=== PATIENT | female | born 1970 | race Caucasian/White ===

== ENCOUNTER → 2020-08-23 17:45 | Outpatient (CLI) | payer OTHER, SELFPAY ==
--- NOTE | ~2020-08-23 | MM_ITS ---
EXAMINATION: MM screening [facility] w [facility] HISTORY: Screening TECHNIQUE: Craniocaudal and mediolateral oblique 3-D tomosynthesis images were obtained and synthetic 2-D images were generated. CAD analysis was submitted and interpreted. COMPARISON: Comparison to multiple prior studies sequentially, with oldest reviewed study dated 03/29. BREAST PARENCHYMAL COMPOSITION: There are scattered areas of fibroglandular density. FINDINGS: There is no evidence of suspicious mass, calcification, or architectural distortion to sugg est malignancy in either breast. There has been no suspicious interval change. IMPRESSION: 1. No mammographic evidence of malignancy. 2. Recommend routine screening mammography in one year. BI-RADS Category 1: Negative Reviewed, dictated and finalized at location A.
== END ==
PROVIDERS: PCP Family Medicine; Visit Provider Obstetrics & Gynecology
DX: Z12.31 Encounter for screening mammogram for malignant neoplasm of breast (principal)
CPT/HCPCS: 77063; 77067

== ENCOUNTER 2021-11-13 07:41 | Outpatient (CLI) | payer OTHER, SELFPAY ==
--- NOTE | ~2021-11-13 | MM_ITS ---
EXAMINATION: MM screening [facility] w [facility] HISTORY: Screening TECHNIQUE: Craniocaudal and mediolateral oblique 3-D tomosynthesis images were obtained and synthetic 2-D images were generated. CAD analysis was submitted and interpreted. COMPARISON: Comparison to multiple prior studies sequentially, with oldest reviewed study dated 05/06. BREAST PARENCHYMAL COMPOSITION: There are scattered areas of fibroglandular density. FINDINGS: There is no evidence of suspicious mass, calcification, or architectural distortion to sugg est malignancy in either breast. There has been no suspicious interval change. IMPRESSION: 1. No mammographic evidence of malignancy. 2. Recommend routine screening mammography in one year. BI-RADS Category 1: Negative Reviewed, dictated and finalized at location A. PATTERN REPAIRER
== END 2021-11-13 07:42 | disposition home or self-care (01) ==
PROVIDERS: PCP Family Medicine; Visit Provider Obstetrics & Gynecology
DX: Z12.31 Encounter for screening mammogram for malignant neoplasm of breast (principal)
CPT/HCPCS: 77063; 77067

== ENCOUNTER 2023-01-08 08:04 | Outpatient (CLI) | payer OTHER, SELFPAY ==
--- NOTE | ~2023-01-08 | MM_ITS ---
EXAMINATION: MM screening srin[facility] BI w [facility] HISTORY: Screening mammogram TECHNIQUE: Craniocaudal and mediolateral oblique 3-D tomosynthesis images were obtained and synthetic 2-D images were generated. CAD analysis was submitted and interpreted. COMPARISON: 11/13/2021, 08/23/2020, 07/14/2019 bilateral screening mammogram examinations BREAST PARENCHYMAL COMPOSITION: There are scattered areas of fibroglandular density. FINDINGS: There is no evidence of suspicious mass, calcification, or architectural distortion to sugg est malignancy in either breast. There has been no suspicious interval change. IMPRESSION: 1. No mammographic evidence of malignancy. 2. Recommend routine screening mammography in one year. BI-RADS Category 1: Negative Reviewed, dictated and finalized at location A. S COORDINATOR
== END 2023-01-08 08:05 | disposition home or self-care (01) ==
PROVIDERS: PCP Family Medicine; Visit Provider Obstetrics & Gynecology
DX: Z12.31 Encounter for screening mammogram for malignant neoplasm of breast (principal)
CPT/HCPCS: 77063; 77067

== ENCOUNTER 2024-01-23 07:49 | Outpatient (CLI) | payer OTHER, SELFPAY ==
--- NOTE | ~2024-01-23 | MM_ITS ---
EXAMINATION: MM screening srin[facility] BI w [facility] HISTORY: Screening mammogram TECHNIQUE: Craniocaudal and mediolateral oblique 3-D tomosynthesis images were obtained and synthetic 2-D images were generated. CAD analysis was submitted and interpreted. COMPARISON: January 08, 2023, November 13, 2021 bilateral screening mammogram examinations BREAST PARENCHYMAL COMPOSITION: There are scattered areas of fibroglandular density. FINDINGS: There is no evidence of suspicious mass, calcification, or architectural distortion to sugg est malignancy in either breast. There has been no suspicious interval change. IMPRESSION: 1. No mammographic evidence of malignancy. 2. Recommend routine screening mammography in one year. BI-RADS Category 1: Negative Reviewed, dictated and finalized at location A. BOX OPERATOR
== END 2024-01-23 07:50 | disposition home or self-care (01) ==
DX: Z12.31 Encounter for screening mammogram for malignant neoplasm of breast (principal)
CPT/HCPCS: 77063; 77067

== ENCOUNTER 2025-04-01 07:51 | Outpatient (CLI) | payer OTHER, SELFPAY ==
--- NOTE | ~2025-04-01 | MM_ITS ---
EXAMINATION: MM screening srinath BI w rebel HISTORY: Screening TECHNIQUE: Craniocaudal and mediolateral oblique 3-D tomosynthesis images were obtained and synthetic 2-D images were generated. CAD analysis was submitted and interpreted. COMPARISON: Comparison to multiple prior studies sequentially, with oldest reviewed study dated 06/12. BREAST PARENCHYMAL COMPOSITION: Not dense: There are scattered areas of fibroglandular density. FINDINGS: There is no evidence of suspicious mass, calcification, or architectural distortion to sugg est malignancy in either breast. There has been no suspicious interval change. IMPRESSION: 1. No mammographic evidence of malignancy. 2. Recommend routine screening mammography in one year. BI-RADS Category 1: Negative Reviewed, dictated and finalized at location A.
--- OUTSIDE RECORDS SUMMARY | 2025-04-01 07:55 | XMS_ITS | Encounter Summary ---
Author Organization [facility] Healthcare Address [address] [place] [address] Care Team Providers Care Montessori Teacher Name Role Phone Hannah Mccoy MD Primary Care Provider [phone] Encounter Details Date Type Department Care Team (Late st Contact Info) Description 03/19/2025 Results Follow-Up [facility] [address] [place] [id number] Sophia Rasmussen MD [address] [facility] [id number] [place], [place] [id number] Social History Tobacco Use Types Packs/Day Years Used Date Smoking Tobacco: Former Cigarettes Smokeless Tobacco: Never Alcohol Use Standard Drinks/Week Comments Yes 0 (1 standard drink = 0.6 oz pur e alcohol) 4-5 per week Humiliation, Afraid, Rape, and Kick questionnair e Answer Date Recorded Within the last year, have y ou been afraid of your partner or ex-partner? No 12/29/2020 Within the last year, have y ou been humiliated or emotionally abused in other ways by your partner or ex-partner? No Within the last year, have y ou been kicked, hit, slapped, or otherwise physically hurt by your partner or ex-partner? No 12/29/2020 Within the last year, have y ou been raped or forced to have any kind of sexual activity by your partner or ex-partner? 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
--- OUTSIDE RECORDS SUMMARY | 2025-04-01 07:56 | XMS_ITS | Clinical Summary ---
Author Organization [facility] Administrative Offices Address [address] [place] [id number] Care Team Providers Care Mobile Equipment Mechanic Name Role Phone Michael Alfonso MD Primary Care Provider [phone] Allergies No known active allergies Medications No known medications Social History Tobacco Use Types Packs/Day Years Used Date Smoking Tobacco: Never Assessed Comments Unknown Sex and Gender Information Value Date Recorded Sex Assigned at Not on file Legal Sex Female 9:53 AM CDT Gender Identity Not on file Sexual Orientation Not on file Plan of Treatment Health Maintenance Due Date Last Done Comments DTAP/TDAP/TD VACCINES (1 - Tdap) 1989 HEPATITIS B VACCINES (1 of 3 - 19+ 3-dose series) 04/1989 HPV/Cotest (21-29) 1991 CERVICAL CANCER SCREENING 01/22/2000 HPV/Cotest (30-65) 01/22/2000 PAP SMEAR 01/22/2000 BREAST CANCER SCREENING 2010 COLORECTAL SCREENING 2015 Colorectal Cancer Screening 2015 FIT-DNA Q 3 years 2015 FIT/FOBT Q 1 year 2015 Flex Sig/CT Colonography Q 5 years 2015 ZOSTER VACCINE (1 of 2) 01/22/2020 INFLUENZA VACCINE (#1) 2024 Insurance Care Teams Mobile Equipment Mechanic Relationship Specialty Start Date End Date Michael Alfonso MD [address] [place] [id number] PCP - General Family Practice 09/13/17
--- OUTSIDE RECORDS SUMMARY | 2025-04-01 07:56 | XMS_ITS | Clinical Summary ---
Author Organization [facility] Address [address] [place] [address] Care Team Providers Care Windows Migration Technician Name Role Phone Hannah Mccoy MD Primary Care Provider [phone] Allergies No known active allergies Medications cholecalciferol, vitamin D3, (VITAMIN D3 ORAL) Take 2,500 Units by mouth Active Active Problems Problem Noted Date Diagnosed Date Annual physical exam 05/12/2024 Assessment & Plan (01/04/2025 9:07 AM HYDROLOGIST): Patient is here to today for annual physical exam. Blood work today. Mammogram scheduled in March Assessment & Plan (05/14/2024 5:22 PM CDT): Patient is here to today for annual physical exam. The patient was evaluated and all health maintenance objectives were discussed and addressed. Blood work Ordered. Mammogram UTD January 2024. PAP 01/02/2022- next 2024. Elevated BP without diagnosis of hypertension Assessment & Plan (01/04/2025 9:06 AM HYDROLOGIST): Chronic white coat. States she brought machine last visit and her blood pressure here in office is elevated but at home normal Assessment & Plan (05/14/2024 5:21 PM CDT): Acute. Normal systolic but slightly elevated diastolic. Patient to monitor blood pressure at home and upload readings through my chart. Well woman exam 02/07/2024 Assessment & Plan (03/05/2025 4:39 PM CDT): Well woman exam Cervix- pap obtained today Breast- normal exam findings STI screen- patient declined control- NA H/o PMB- as noted previously: Pt with US done a few days. Reviewed and see findings largely reassuring. EE- 5.4mm but reasonable when taking HT which started 6mo ago. No inclination to EmBx sample at this time. Pt obtaining current patch and prometrium from mail order option at this time. Requested that when Rx is done in 2 mo if possible to start getting this from our offices- not a problem. Discussed briefly the consideration of either tapering off meds vs continuing with pros/cons in mind juxtaposed to sx relief. #) HCM Screening History Date of Last Pap if Known: 01/02/2022 History of Abnormal Paps: Yes Ever had an HPV vaccine?: No Ever used Hormone Replacement Therapy?: Yes Number of years of Hormone Replacement Therapy?: (7 months ago) Ever had a mammogram?: Yes Date of Mammogram: 01/2024 Mammogram result: Normal Ever had a colonoscopy?: No (Cologuard) Ever had a bone-density test?: No #) RTC- 1 year for WWE or prn Assessment & Plan (02/07/2024 12:33 PM CDT): Cervix- pap obtained- last reflex testing normal in 2021; next in 2024 Breast- normal exam findings STI screen- patient declined control- NA HCM Screening History Date of Last Pap if Known: 01/02/22 History of Abnormal Paps: No Ever had a mammogram?: Yes Date of Mammogram: 11/13/21 Has a PCP, has not seen in some time; will obtain updated routine [facility] labs. Will make a return visit and/or find a new PCP Mixed hyperlipidemia 09/10/2017 Overview (07/19/2021): 09/02 Cholesterol 269 HDL 47 LDL 181 triglyceride 204 Assessment & Plan (05/14/2024 5:20 PM CDT): Chronic. Not on a statin. We will order lipid panel. Assessment & Plan (07/19/2021 12:25 PM CDT): Reviewed lipid panel from 01/08. Discussed elevated triglyceride and LDL. Discussed complications of elevated cholesterol. Discussed treatment option. Recommend healthy diet and regular exercise. Discussed medication options/statins. Patient would like to adopt lifestyle modification initially prior to starting medication. We will be reviewing lipid panel in 6 months. Recommended dietitian referral. Patient refused for now. Precordial pain 09/09/2017 Overview (07/19/2021): 03/04 stress echo 10:31--101% maximal heart rate, no ischemia, normal LVEF 09/03 EKG: SR at 84, borderline delayed R-wave progress, leftward axis 09/03 echo: EF 60%, normal chamber sizes, normal valve function, RVSP 24 10/04 CTA: Normal aorta, and no PE Assessment & Plan (07/19/2021 12:26 PM CDT): Reviewed results from 2016. No significant findings noted. Likely musculoskeletal. Differential diagnosis anxiety. Recommended could try hydroxyzine 10 mg Q 8 hourly as needed during the attack. To follow-up notify went symptoms reoccur. Reviewed previous records. Resolved Problems Problem Noted Date Diagnosed Date Resolved Date Immunization counseling 07/19/202104/19 Assessment & Plan (07/19/2021 12:26 PM CDT): Recommended immunization against tetanus, shingles, influenza and COVID-19. Patient refused immunization against tetanus and shingles for now. Encounters Date Type Department Care Team Description 03/19/2025 Results Follow-Up [facility] [address] [place] [address] Sophia Rasmussen MD 03/05/2025 4:44 PM CDT - 03/05/2025 11:59 PM CDT Hospital Encounter [facility] [address] [place] [address] Well woman exam Discharge Disposition: Discharge to home or self care 03/05/2025 4:00 PM CDT Office Visit [facility] Ob[facility]ne[facility] [address] [place] [address] Sophia Rasmussen MD Well woman exam (Primary Dx) 01/04/2025 2:35 PM HYDROLOGIST - 01/04/2025 11:59 PM HYDROLOGIST Hospital Encounter [facility] [address] [place] [id number] Discharge Disposition: Discharge to home or self care 01/04/2025 9:00 AM HYDROLOGIST Office Visit [facility] [address] [place] [address] [address] [place] [address] Kirsten Cabrera NP Annual physical exam (Primary Dx); Elevated BP without diagnosis of hypertension 01/04/2025 Results Follow-Up [facility] [address] [place] [address] [address] [place] [address] Kirsten Cabrera NP from Last 3 Months Immunizations Immunization Administration Dates Next Due Influenza, Quadrivalent, Spl it, Preservative Free, Intramuscular 10/01/2019 Influenza, Unspecified 01/04/2025(Deferr ed: Patient Refused),07/19/2024(Deferred: Patient Refused) Tdap 09/06/2016 Surgical History Surgery Date Site/Laterality Comments COMBINED HYSTEROSCOPY DIAGNO STIC / D&C 04/27/2011 path: secretory EM Medical History Medical History Date Comments High cholesterol Immunization counseling 07/19/2021 Family History Medical History Relation Name Comments Hyperlipidemia Father Camden leonard Hypertension Father Camden leonard Diabetes Maternal Grandfather Elmer chan Heart attack Maternal Grandfather Elmer chan Alzheimer's disease Maternal Grandmother Sasha abreu Heart attack Maternal Grandmother Sasha Chan Hypertension Mother Darling leonard Alcohol abuse Paternal Grandfather Erika leonard Heart disease Paternal Grandfather Erika leonard Heart disease Paternal Grandmother Erika leonard Hypertension Sister Dionne leonard Breast cancer Neg Hx Colon cancer Neg Hx Ovarian cancer Neg Hx Uterine cancer Neg Hx Relation Name Status Comments Father Camden leonard Maternal Grandfather Elmer chan Maternal Grandmother Sasha Chan Mother Darling leonard Paternal Grandfather Erika leonard Paternal Grandmother Erika leonard Sister Dionne leonard Social History Tobacco Use Types Packs/Day Years Used Date Smoking Tobacco: Former Cigarettes Smokeless Tobacco: Never Tobacco Cessation:Counseling Given: Not Answered Alcohol Use Standard Drinks/Week Comments Yes 0 [...] on file Legal Sex Female 3:12 AM HYDROLOGIST Gender Identity Not on file Sexual Orientation Not on file 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 Not on file Not on file Not on file Obstetrics History Para Term AB IAB SAB Ectopic Multiple Livin g Live Births 1 1 1 Date Outcome GA Total Labor Labor/2nd/3rd Weight Sex Type Anes PTL Frances A1 A5 Name Clin 1999 SAB Demise Last Filed Vital Signs Vital Sign Reading Time Taken Comments Blood Pressure 113/80 03/05/2025 4:00 PM CDT Pulse 84 03/05/2025 4:00 PM CDT Temperature 36.7 C (98.1 F) 01/04/2025 8:53 AM HYDROLOGIST Respiratory Rate - - Oxygen Saturation 97% 01/04/2025 8:53 AM HYDROLOGIST Inhaled Oxygen Concentration - - Weight 80 kg (176 lb 4.8 oz) 03/05/2025 4:00 PM CDT Height 166.4 cm (5' 5.5 ) 03/05/2025 4:00 PM CDT Body Mass Index 28.89 03/05/2025 4:00 PM CDT Plan of Treatment Health Maintenance Due Date Last Done Comments Breast Cancer Screening-Mammogram 02/04/2025 02/05/2024, 11/13/2021, 01/16/2021 Zoster Vaccine (1 of 2) 05/12/2025 Post poned from 01/22/2020 (Patient declined, but will receive in the future) Depression Screening 01/04/2026 01/04/2025, 05/12/2024, 07/19/2021 Regular Well Visit/Exam 18-64 03/05/2026 03/05/2025, 01/04/2025, 05/12/2024, Additional history exists DTaP/Tdap/Td Vaccine (2 - Td or Tdap) 09/06/2026 09/06/2016 Colon Cancer Screening-DNA Stool 06/11/2027 06/11/2024, 01/26/2021 Cervical Cancer Screening 03/05/20302024, 03/05/2025, 01/02/2022, Additional history exists Influenza Vaccine Discontinued 10/01/2019 Hepatitis C Screening Completed 05/12/2024 Colon Cancer Screening-FIT Discontinued 06/11/2024, Hepatitis B Screening Discontinued Pneumococcal vaccine <65 Aged Out No longer eligible based on patient's age to complete this topic Procedures Procedure Name Priority Date/Time Associated Diagnosis Comments PAP AND HIGH RISK HPV, REFLEX TO GENOTYPING Routine 03/05/2025 4:44 PM CDT Well woman exam HIGH RISK HPV DNA DETECTION WITH GENOTYPING Routine 03/05/2025 4:44 PM CDT Well woman exam EGFR Routine 01/04/2025 9:16 AM HYDROLOGIST Annual physical exam DIFFERENTIAL AUTO Routine 01/04/2025 9:1 6 AM HYDROLOGIST Annual physical exam COMPREHENSIVE METABOLIC PANEL Routine 01/04/2025 9:16 AM HYDROLOGIST Annual physical exam CBC WITH AUTO DIFFERENTIAL Routine 01/04/2025 9:16 AM HYDROLOGIST Annual physical exam LIPID PANEL Routine 01/04/2025 9:16 AM HYDROLOGIST Annual physical exam HEMOGLOBIN A1C Routine 01/04/2025 9:16 AM HYDROLOGIST Annual physical exam TSH Routine 01/04/2025 9:16 AM HYDROLOGIST Annual physical exam STOOL DNA COLOGUARD Routine 06/11/2024 9:40 PM CDT Screen for colon cancer HEPATITIS C ANTIBODY Routine 05/12/2024 5:00 PM CDT Preventative health care SCREENING MAMMOGRAM BILATERAL W REED Schedule Routine, Read Routine (OP Routine) 11/13/2021 from Last 3 Months or Most Recently Relevant to Health Maintenance Results * High Risk HPV DNA Detection with Genotyping (Molecular component) (03/05/2025 4:44 PM CDT) HPV HR 16 Not Detected Not Detected [facility] HPV HR 18 Not Detected Not Detected [facility] HPV HR Non 16/18 Not Detected Not Detected [facility] Comment: Interpretive Data Nucleic acid amplification for detection of high-risk Human Papilloma virus (HPV) is performed by the Lanie Jonathan 6800 HPV test. This assay specifically detects HPV-16 and HPV-18 genotypes. The following HPV genotypes are detected as high-risk HPV: HPV-31, 33, 35, ,39, 45, 51, 52, 56, 58, 59, 66, and 68. This assay has been approved by the [place] Food and Drug Administration for detection of HPV in cervical specimens collected by a physician using an endocervical brush/spatula or cervical broom and placed in the ThinPrep Pap Test PreservCyt collection containers. The performance characteristics of this test have been verified by the [facility] Molecular Infectious Disease laboratory. Correlate with separately reported cytology results, as applicable. Interpretive data last revised 23 Endocervical 03/05/2025 4:44 PM CDT 03/09/2025 8:16 AM CDT Narrative [facility] - 03/09/2025 7:22 PM CDT Clinical history and diagnosis->screening Number of vials->1 Testing type->Screening Last menstrual period (date if known)->postmeno Sophia Rasmussen MD LAB BODY FLUIDS AND STOOLS OR DERABLES Final Result [facility] [place] [address] [facility] * Pap and High Risk HPV and Genotyping (Cytology Component) (03/05/2025 4:44 PM CDT) Thin prep (Pap test) 03/05/2025 4:44 PM CDT 03/05/2025 6:30 PM CDT Narrative PATHOLOGY [facility] - 03/12/2025 12:06 PM CDT EPIC results best viewed via link to PDF [facility] [place] [address] Note to Patients: This report may contain a detailed description of human tissue sent by a health care provider to the laboratory for pathologic evaluation. The content of this report is essential for diagnosis and may provide important critical findings. This information may be unfamiliar to patients to review without a medical professional present. It is advised that the patient review this report in the presence of a health care provider who can answer questions and explain the details. CYTOPATHOLOGY REPORT FINAL Patient Name: STEPHANIE QUIROS Gender: F : 1970 (Age: 55) Address: [address] [place] [id number] Hospital #: [id number] Service: UNKNOWN Location: Patient Type: [facility] SPECIMEN Taken: 03/05/2025 Received: 03/05/2025 Accessioned: 03/08/2025 Reported: 03/12/2025 Physician(s): Sophia Rasmussen M.D. FINAL INTERPRETATION SOURCE OF SPECIMEN Liquid based Thin Prep pap with HPV: STATEMENT OF ADEQUACY - Satisfactory for evaluation - Endocervical cells/transformation zone sample present GENERAL CATEGORIZATION: - Negative for squamous intraepithelial lesion or malignancy Comments (Normal-Negative for High Risk HPV) HPV HR 16- Not detected HPV HR 18-Not detected HPV HR non 16/18- Not detected Interpretive Data Nucleic acid amplification for detection of high-risk Human Papilloma virus (HPV) is performed by the Lanie Jonathan 6800 HPV test. This assay specifically detects HPV- 16 and HPV-18 genotypes. The following HPV genotypes are detected as high-risk HPV: HPV-31, 33, 35, 39, 45, 51, 52, 56, 58, 59, 66, and 68. This assay has been approved by the [place] Food and Drug Administration for detection of HPV in cervical specimens collected by a physician using an endocervical brush/spatula or cervical broom and placed in the ThinPrep Pap Test PreservCyt collection containers. The performance characteristics of this test have been verified by the [facility] Molecular Infectious Disease laboratory. Correlate with reported cytology results, as applicable. Interpretive data last revised 23 ravindra/03/12/2025 12:06 ROSA Scruggs(ASCP) Report Electronically Reviewed and Signed Out By ROSA Scruggs(ASCP) 03/12/2025 12:06:54 Cervicovaginal Cytology (Pap Test) Disclaimer: The Pap test is a screening test used to detect cervical cancer and its precursors; it is not a diagnostic procedure. False negative and false positive results do occur. Pap test results should be interpreted in the context of pertinent clinical information and biopsy results as indicated. CMS Clinical Laboratory Improvement Amendments (CLIA) mandate that cytologic and histologic results be correlated for laboratory director of quality improvement & improvement standards. FOR ALL HIGH-GRADE CASES we request submission of follow-up histological material and/or reports that have not been previously provided so that we may fulfill said required standards. Gross Description A. Liquid based Thin Prep pap with HPV: Cervical/vaginal - Screening ThinPrep Clinical Diagnosis and History Last Menstrual Period: postmeno The patient is a 55 year old female with screening. Report Images and scanned documents, if included only viewable in PDF version The performance characteristics of some immunohistochemical stains, in-situ hybridization and fluorescence in-situ hybridization tests and immunophenotyping by flow cytometry cited in this report (if any) were determined by the Surgical Pathology Department at [facility] as part of an ongoing head of quality program and in compliance with federally mandated regulations drawn from the Clinical Laboratory Improvement Act of 1988 (CLIA '88). Some of these tests rely on the use of analyte specific reagents and are subject to specific labeling requirements by the [place] Food and Drug Administration. Such diagnostic tests may only be performed in a facility that is certified by the Department of Health and Human Services as a high complexity laboratory under CLIA '88. The FDA has determined that such clearance or approval is not necessary. This test is used for clinical purposes. It should not be regarded as investigational or for research. Nevertheless, federal rules concerning the medical use of analyte specific reagents require that the following disclaimer be attached to the report: This test was developed and its performance characteristics determined by the Surgical Pathology Department of [facility]. It has not been cleared or approved by the U. S. Food and Drug Administration. Sophia Rasmussen MD LAB CYTOLOGY ORDERABLES Final Result PATHOLOGY [facility] 3rd Floor [place], [place] [phone] * eGFR (01/04/2025 9:16 AM HYDROLOGIST) eGFR >90 >=60 mL/min/1. 73 m2 Comment: Interpretive Data Reference Interval Normal >/= 90 mL/min/1.73m2 Mildly decreased* 60 - 89 mL/min/1.73m2 Mildly to moderately decreased 45 - 59 mL/min/1.73m2 Moderately to severely decreased 30 - 44 mL/min/1.73m2 Severely decreased 15 - 29 mL/min/1.73m2 Kidney Failure < 15 mL/min/1.73m2 *Relative to young adult level Estimated glomerular filtration rate is determined by the 2020 CKD-EPI equation recommended by the National Kidney Foundation (A Unifying Approach to GFR Estimation: Recommendations of the NKF-ASK Task Force on Reassessing the Inclusion of Race in Diagnosing Kidney Disease, JASN 2020). The CKD-EPI equation should not be used for patients with unstable renal function and has not been validated in children and those over 70. Current interpretive data was last reviewed 2021. Blood 01/04/2025 9:16 AM HYDROLOGIST 01/04/2025 1:22 PM HYDROLOGIST us Kirsten Cabrera [employer] LAB BLOOD ORDERABLES Final Re sult [facility] [address] [place] [address] * Differential, auto (01/04/2025 9:16 AM HYDROLOGIST) Neutrophil abs 2.6 1.5 - 6.5 K/cumm Imm gran abs 0.0 0.0 - 0.1 K/cumm [facility] Lymphocyte abs 1.5 0.8 - 3.3 K/cumm [facility] Monocyte abs 0.4 0.2 - 0.8 K/cumm [facility] Eosinophil abs 0.2 0.0 - 0.5 K/cumm [facility] Basophil abs 0.0 0.0 - 0.1 K/cumm [facility] Neutrophil pct 56.2 % [facility] Comment: Interpretive Data Percent cell count reference ranges are not reported, since discordance with absolute values may lead to misinterpretation of CBC data. Current Interpretive Data was last revised on 2018. Imm gran pct 0.2 % [facility] Comment: Interpretive Data Percent cell count reference ranges are not reported, since discordance with absolute values may lead to misinterpretation of CBC data. Current Interpretive Data was last revised on 2018. Lymphocyte pct 31.5 % [facility] Comment: Interpretive Data Percent cell count reference ranges are not reported, since discordance with absolute values may lead to misinterpretation of CBC data. Current Interpretive Data was last revised on 2018. Monocyte pct 7.4 % [facility] Comment: Interpretive Data Percent cell count reference ranges are not reported, since discordance with absolute values may lead to misinterpretation of CBC data. Current Interpretive Data was last revised on 2018. Eosinophil pct 3.8 % [facility] Comment: Interpretive Data Percent cell count reference ranges are not reported, since discordance with absolute values may lead to misinterpretation of CBC data. Current Interpretive Data was last revised on 2018. Basophil pct 0.9 % [facility] Comment: Interpretive Data Percent cell count reference ranges are not reported, since discordance with absolute values may lead to misinterpretation of CBC data. Current Interpretive Data was last revised on 2018. Blood 01/04/2025 9:16 AM HYDROLOGIST 01/04/2025 12:43 PM HYDROLOGIST Kirsten Cabrera [employer] LAB BLOOD ORDERABLES Final Re sult [facility] [address] [place] [address] * CBC with auto differential (01/04/2025 9:16 AM HYDROLOGIST) WBC 4.7 3.8 - 9.9 K/cumm Hgb 14.1 11.9 - 15.5 g/dL [facility] Hct 43.6 35.6 - 45.5 % [facility] Plt 281 150 - 400 K/cumm [facility] MPV 10.0 9.1 - 12.3 fL [facility] RBC 4.54 3.90 - 5.20 M/cumm [facility] MCV 96.0 81.3 - 96.4 fL [facility] MCH 31.1 27.1 - 33.3 pg [facility] MCHC 32.3 32.3 - 35.7 g/dL [facility] RDW CV 11.9 11.1 - 14.9 % [facility] RDW SD 42.2 35.7 - 48.1 fL [facility] NRBC abs 0.00 0.00 - 0.01 K/cumm [facility] Blood 01/04/2025 9:16 AM HYDROLOGIST 01/04/2025 12:43 PM HYDROLOGIST Kirsten Cabrera [employer] LAB BLOOD ORDERABLES Final Re sult Performing Organization Address [facility] Co de Phone Number [facility] [address] Department [place] [address] * TSH (01/04/2025 9:16 AM HYDROLOGIST) [facility] Thyroid Stimulating Hormone 2.73 0.30 - 4.20 mcIUnit/mL Blood 01/04/2025 9:16 AM HYDROLOGIST 01/04/2025 1:22 PM HYDROLOGIST Kirsten Cabrera [employer] LAB BLOOD ORDERABLES Final Re sult Performing Organization Address [facility] de Phone Number [facility] [address] [place] [address] * Hemoglobin A1c (01/04/2025 9:16 AM HYDROLOGIST) [facility] Hgb A1C 5.5 4.0 - 5.6 % Estimated Average Glucose 111 mg/dL [facility] Comment: The ADA recommends reporting an estimated Average Glucose (eAG) with all Hemoglobin A1c results using the equation derived from a study of 507 normal and diabetic adults. Minority populations were underrepresented and children were not included. (Diabetes Care 31:9701-0947, 2008). The eAG is not equivalent to a fasting glucose. Blood 01/04/2025 9:16 AM HYDROLOGIST 01/04/2025 12:43 PM HYDROLOGIST Kirsten Cabrera [employer] LAB BLOOD ORDERABLES Final Re sult Performing Organization Address [facility] de Phone Number [facility] [address] Department [place] [address] * (ABNORMAL) Lipid panel (01/04/2025 9:16 AM HYDROLOGIST) [facility] Cholesterol 233(H) 30 - 199 mg/dL Comment: Interpretive Data Ages < or = 19 years Acceptable: <170 mg/dL Borderline high: 170-199 mg/dL High: >or= 200 mg/dL Ages > or = 20 years Desirable: <200 mg/dL Borderline high: 200-239 mg/dL High: >or= 240 mg/dL Literature References: 1. Expert Panel on Integrated Guidelines for Cardiovascular Health and Risk Reduction in Children and Adolescents. Pediatrics 2011;128:S213 2. NCEP Expert Panel. Circulation 2004;110:227 Current Interpretive Data was last revised on 2018. Triglycerides 140 <=149 mg/dL [facility] Comment: Interpretive Data Ages < or = 9 years Acceptable: <75 mg/dL Borderline high: 75-99 mg/dL High: >or= 100 mg/dL Ages 10 to 20 years Acceptable: <90 mg/dL Borderline high: 90-129 mg/dL High: >or= 130 mg/dL Ages > or = 20 years Desirable: <150 mg/dL Borderline high: 150-199 mg/dL High: 200-499 mg/dL Very high: >or= 499 mg/dL Literature References: 1. Expert Panel on Integrated Guidelines for Cardiovascular Health and Risk Reduction in Children and Adolescents. Pediatrics 2011;128:S213 2. NCEP Expert Panel. Circulation 2004;110:227 Current Interpretive Data was last revised on 2018. HDL 41 >=40 mg/dL [facility] Comment: Interpretive Data Ages < or = 19 years Acceptable: >45 mg/dL Borderline low: 40-45 mg/dL Low: <40 mg/dL Ages > or = 20 years Desirable: >or= 60 mg/dL Low: <40 mg/dL Literature References: 1. Expert Panel on Integrated Guidelines for Cardiovascular Health and Risk Reduction in Children and Adolescents. Pediatrics 2011;128:S213 2. NCEP Expert Panel. Circulation 2004;110:227 Current Interpretive Data was last revised on 2018. LDL, calculated 166(H) <=129 mg/dL [facility] Comment: Interpretive Data Ages < or = 19 years Acceptable: <110 mg/dL Borderline high: 110-129 mg/dL High: >or= 130 mg/dL Ages > or = 20 years Optimal: <100 mg/dL Near optimal: 100-129 mg/dL Borderline high: 130-159 mg/dL High: >160 mg/dL Calculated using the Diehl LDL-C estimating equation. This equation was implemented on 2024. Prior to this date LDL-C was estimated using the Friedewald equation. Literature References: 1. Expert Panel on Integrated Guidelines for Cardiovascular Health and Risk Reduction in Children and Adolescents. Pediatrics 2011;128:S213 2. NCEP Expert Panel. Circulation 2004;110:227 3. Fazal Valdez et al. SHAYAN Cardiol. 2019March 18;5(5):540-548. doi: [email or web address] Current Interpretive Data was last revised on 2024. Non-HDL Cholesterol 192 mg/dL [facility] Comment: Interpretive Data Ages < or = 19 years Acceptable: <120 mg/dL Borderline high: 120-144 mg/dL High: >145 mg/dL Ages > or = 20 years When triglycerides are >200 mg/dL, Non-HDL cholesterol is a secondary target of therapy with treatment goals that are 30 mg/dL greater than the LDL cholesterol target. Literature References: 1. Expert Panel on Integrated Guidelines for Cardiovascular Health and Risk Reduction in Children and Adolescents. Pediatrics 2011;128:S213 2. NCEP Expert Panel. Circulation 2004;110:227 Current Interpretive Data was last revised on 2018. Chol/HDL ratio 6 [facility] Blood 01/04/2025 9:16 AM HYDROLOGIST 01/04/2025 1:22 PM HYDROLOGIST us Kirsten Cabrera [facility] BLOOD ORDERABLES Final Re sult [facility] [address] [place] [address] * (ABNORMAL) Comprehensive metabolic panel (01/04/2025 9:16 AM HYDROLOGIST) Sodium 144 135 - 145 mmol/L Potassium, pl 4.4 3.3 - 4.9 mmol/L [facility] Chloride 106 97 - 110 mmol/L [facility] CO2 27 22 - 32 mmol/L [facility] Anion gap 11 2 - 15 mmol/L [facility] BUN 12 6 - 25 mg/dL [facility] Creatinine 0.69 0.60 - 1.10 mg/dL [facility] Glucose 109 70 - 199 mg/dL [facility] Comment: Interpretive Data Fasting glucose >/= 126 mg/dl is diagnostic for diabetes. Fasting is defined as no caloric intake for at least 8 hours. Fasting glucose between 100 mg/dl to 125 mg/dl is diagnostic of prediabetes. In a patient with classic symptoms of hyperglycemia or hyperglycemic crisis, a random glucose >/= 200 mg/dl is diagnostic for diabetes. In the absence of unequivocal hyperglycemia, results should be confirmed by repeat testing. The classification and Diagnosis of Diabetes Diabetes Care 2021; 46: S19-S40. Current interpretive data was last revised 2022. Calcium 9.3 8.5 - 10.3 mg/dL [facility] Bilirubin, total 0.5 0.1 - 1.2 mg/dL [facility] Protein, pl 7.1 6.5 - 8.5 g/dL [facility] Albumin 4.3 3.5 - 5.0 g/dL [facility] Alk phos 84 40 - 130 Units/L [facility] ALT 52(H) 7 - 45 Units/L [facility] AST 34 10 - 45 Units/L [facility] Blood 01/04/2025 9:16 AM HYDROLOGIST 01/04/2025 1:22 PM HYDROLOGIST Narrative [facility] - 01/04/2025 2:12 PM HYDROLOGIST Has the patient fasted?->Yes us Kirsten Cabrera [facility] BLOOD ORDERABLES Final Re sult [facility] [address] [place] [address] * Stool DNA - Cologuard (06/11/2024 9:40 PM CDT) Stool DNA - Cologuard Negative Negative [facility] (CLIA #:[id number]) Comment: NEGATIVE TEST RESULT. A negative Cologuard result indicates a low likelihood that a colorectal cancer (CRC) or advanced adenoma (adenomatous polyps with more advanced pre-malignant features) is present. The chance that a person with a negative Cologuard test has a colorectal cancer is less than 1 in 1500 (negative predictive value >99.9%) or has an advanced adenoma is less than 5.3% (negative predictive value 94.7%). These data are based on a prospective cross-sectional study of 10,000 individuals at average risk for colorectal cancer who were screened with both Cologuard and colonoscopy. (Stephanie Hodges al, N Engl J Med 2014;370(14):8481-4138) The normal value (reference range) for this assay is negative. COLOGUARD RE-SCREENING RECOMMENDATION: Periodic colorectal cancer screening is an important part of preventive healthcare for asymptomatic individuals at average risk for colorectal cancer. Following a negative Cologuard result, the [place] [employer] and U.S. Multi-Society Task Force screening guidelines recommend a Cologuard re-screening interval of 3 years. References: [employer] Guideline for Colorectal Cancer Screening: https://www.cancer.org/cancer/plbyl-tdsvcj-gwcljo/jemjyoaoj-iwiyhoaab-xtrrzfs/ac s-rec ommendations.html.; Bryce DK, Ricardo DALEY, Sandie LaddK, Colorectal Cancer Screening: Recommendations for Physicians and Patients from the U.S. Multi-Society Task Force on Colorectal Cancer Screening , Am J Gastroenterology 2017; 112:0245-0841. TEST DESCRIPTION: Composite algorithmic analysis of stool DNA-biomarkers with hemoglobin immunoassay. Quantitative values of individual biomarkers are not reportable and are not associated with individual biomarker result reference ranges. Cologuard is intended for colorectal cancer screening of adults of either sex, 45 years or older, who are at average-risk for colorectal cancer (CRC). Cologuard has been approved for use by the U.S. FDA. The performance of Cologuard was established in a cross sectional study of average-risk adults aged 50-84. Cologuard performance in patients ages 45 to 49 years was estimated by sub-group analysis of near-age groups. Colonoscopies performed for a positive result may find as the most clinically significant lesion: colorectal cancer [4.0%], advanced adenoma (including sessile [id number]|2025-04-01 07:56:00|2025-04-01 07:55:00|XMS_ITS|[facility]|External Medical Summaries|[id number]|" Encounter Summary Created on: April 01, 2025 Stephanie Quiros : 1970 Sex: Female Author Organization [facility] Address [address] [place] [address] Care Team Providers Care Windows Migration Technician Name Role Phone Michael Alfonso MD Primary Care Provider [phone] Cele Abdi MD Primary Care Provider [phone] Unknown, Notinfile Primary Care Provider Unavail able Tessa Jones MD Primary Care Provider [phone] Hannah Mccoy MD Primary Care Provider [phone] Encounter Details Date Type Department Care Team (Late st Contact Info) Description 02/26/2017 Orders Only [facility] ProviderDoug MD [address] [place] [id number] Social History Tobacco Use Types Packs/Day Years Used Date Smoking Tobacco: Never Assessed Comments Unknown Sex and Gender Information Value Date Recorded Sex Assigned at Not on file Legal Sex Female 3:12 AM HYDROLOGIST Gender Identity Not on file Sexual Orientation Not on file documented as of this encounter Plan of Treatment Not on file documented as of this encounter Procedures Procedure Name Priority Date/Time Associated Diagnosis Comments CARDIOLOGY REPORT 02/26/2017 documented in this encounter Results * CARDIOLOGY REPORT (02/26/2017) Anatomical Region Laterality Modality Other Narrative 02/26/2017 Ordered by an unspecified provider. Historical Provider [facility] JENNIFER MURDOCK Final Result documented in this encounter Visit Diagnoses Not on filedocumented in this encounter Care Teams Windows Migration Technician Relationship Specialty Start Date End Date Michael Alfonso MD [address] [place] [address] PCP - General 02/20/17 12/16/18 Cele Abdi MD [address] [place] [address] PCP - General Family Practice 12/17/18 05/25/21 Unknown, Notinfile PCP - General 05/26/21 07/18/21 Tessa Jones MD PCP - General Family Medicine 07/19/21 05/11/24 Hannah Mccoy MD [id number] [address] PCP - General Family Medicine 05/12/24 documented as of this encounter "
--- OUTSIDE RECORDS SUMMARY | 2025-04-01 07:56 | XMS_ITS | Referral Summary ---
Author Organization [facility] Address [address] [place] [address] Care Team Providers Care Water Taxi Driver Name Role Phone Hannah Mccoy MD Primary Care Provider [phone] Encounters Date Type Department Care Team Description 03/19/2025 Results Follow-Up [facility] [address] [place] [address] Sophia Rasmussen MD 03/05/2025 4:44 PM CDT - 03/05/2025 11:59 PM CDT Hospital Encounter [facility] [address] [place] [address] Well woman exam Discharge Disposition: Discharge to home or self care 03/05/2025 4:00 PM CDT Office Visit [facility] Obstetrics and Gynecology [facility] 1st Floor [address] [place] [address] Sophia Rasmussen MD Well woman exam (Primary Dx) 01/04/2025 Results Follow-Up [facility] [address] [place] [address] Kirsten Cabrera NP 01/04/2025 2:35 PM PURIFICATION DIRECTOR - 01/04/2025 11:59 PM PURIFICATION DIRECTOR Hospital Encounter [facility] [address] [place] [address] Discharge Disposition: Discharge to home or self care 01/04/2025 9:00 AM PURIFICATION DIRECTOR Office Visit [facility] [address] [place] [phone] Kirsten Cabrera, ALISA Annual physical exam (Primary Dx); Elevated BP without diagnosis of hypertension from Last 3 Months Allergies No known active allergies Medications cholecalciferol, vitamin D3, (VITAMIN D3 ORAL) Take 2,500 Units by mouth Active Active Problems Problem Noted Date Diagnosed Date Annual physical exam 05/12/2024 Assessment & Plan (01/04/2025 9:07 AM PURIFICATION DIRECTOR): Patient is here to today for annual [...] hypertension Assessment & Plan (01/04/2025 9:06 AM PURIFICATION DIRECTOR): Chronic white coat. States she brought machine [...] in some time; will obtain updated routine [facility] labs. Will make a return visit and/or [...] (07/19/2021 12:26 PM CDT): Reviewed results from 2017. No significant findings noted. Likely musculoskeletal. Differential [...] immunization against tetanus and shingles for now. 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 file Not on file Not on file Last Filed Vital Signs Vital Sign Reading Time Taken Comments Blood Pressure 113/80 03/05/2025 4:00 PM CDT Pulse 84 03/05/2025 4:00 PM CDT Temperature 36.7 C (98.1 F) 01/04/2025 8:53 AM PURIFICATION DIRECTOR Respiratory Rate - - Oxygen Saturation 97% 01/04/2025 8:53 AM PURIFICATION DIRECTOR Inhaled Oxygen Concentration - - Weight 80 kg (176 lb 4.8 oz) 03/05/2025 4:00 PM CDT Height 166.4 cm (5' 5.5 ) 03/05/2025 4:00 PM CDT Body Mass Index 28.89 03/05/2025 4:00 PM CDT Plan of Treatment Not on file Procedures Procedure Name Priority Date/Time Associated Diagnosis Comments PAP AND HIGH RISK HPV, REFLEX TO GENOTYPING Routine 03/05/2025 4:44 PM CDT Well woman exam HIGH RISK HPV DNA DETECTION WITH GENOTYPING Routine 03/05/2025 4:44 PM CDT Well woman exam EGFR Routine 01/04/2025 9:16 AM PURIFICATION DIRECTOR Annual physical exam DIFFERENTIAL AUTO Routine 01/04/2025 9:1 6 AM PURIFICATION DIRECTOR Annual physical exam COMPREHENSIVE METABOLIC PANEL Routine 01/04/2025 9:16 AM PURIFICATION DIRECTOR Annual physical exam CBC WITH AUTO DIFFERENTIAL Routine 01/04/2025 9:16 AM PURIFICATION DIRECTOR Annual physical exam LIPID PANEL Routine 01/04/2025 9:16 AM PURIFICATION DIRECTOR Annual physical exam HEMOGLOBIN A1C Routine 01/04/2025 9:16 AM PURIFICATION DIRECTOR Annual physical exam TSH Routine 01/04/2025 9:16 AM PURIFICATION DIRECTOR Annual physical exam STOOL DNA COLOGUARD Routine 06/11/2024 9:40 PM CDT Screen for colon cancer HEPATITIS C ANTIBODY Routine 05/12/2024 5:00 PM CDT Preventative health care SCREENING MAMMOGRAM BILATERAL W BAYRON Schedule Routine, Read Routine (OP Routine) 11/13/2021 from Last 3 Months or Most Recently Relevant to Health Maintenance Results * High Risk HPV DNA Detection with Genotyping (Molecular component) (03/05/2025 4:44 PM CDT) HPV HR 16 Not Detected Not Detected [facility] HPV HR 18 Not Detected Not Detected [facility] HPV HR Non 16/18 Not Detected Not Detected [facility] Comment: Interpretive Data Nucleic acid amplification [...] this test have been verified by the [facility] Molecular Infectious Disease laboratory. Correlate with separately reported cytology results, as applicable. Interpretive data last revised 23 Endocervical 03/05/2025 4:44 PM CDT 03/09/2025 8:16 AM CDT Narrative [facility] - 03/09/2025 7:22 PM CDT Clinical history and diagnosis->screening Number of vials->1 Testing type->Screening Last menstrual period (date if known)->postmeno us Sophia Rasmussen MD LAB BODY FLUIDS AND STOOLS OR DERABLES Final Result [facility] Department [place] [address] [facility] * Pap and High Risk HPV and Genotyping (Cytology Component) (03/05/2025 4:44 PM CDT) Thin prep (Pap test) 03/05/2025 4:44 PM CDT 03/05/2025 6:30 PM CDT Narrative PATHOLOGY [facility] - 03/12/2025 12:06 PM CDT EPIC results best viewed via link to PDF [facility] Laboratory [place] [address] Note to Patients: This report may contain [...] Gender: F : 1970 (Age: 55) Address: [address] [place] [phone] Hospital #: [id number] Service: UNKNOWN Location: Patient Type: [facility] SPECIMEN Taken: 03/05/2025 Received: 03/05/2025 Accessioned: 03/08/2025 [...] have been verified by the [facility] Molecular Infectious Disease laboratory. Correlate with reported [...] clinical information and biopsy results as indicated. [facility] Clinical Laboratory Improvement Amendments (CLIA) mandate that cytologic and histologic results be correlated for laboratory vice president quality improvement & improvement standards. FOR ALL [...] the Surgical Pathology Department at [facility] as part of an ongoing quality assurance tester program and in compliance with federally mandated [...] the Surgical Pathology Department of [facility]. It has not been cleared or approved by the U. S. Food and Drug Administration. Sophia Rasmussen MD LAB CYTOLOGY ORDERABLES Final Result PATHOLOGY [facility] 3rd Floor [place], [place] [phone] * eGFR (01/04/2025 9:16 AM PURIFICATION DIRECTOR) eGFR >90 >=60 mL/min/1. 73 m2 Comment: [...] last reviewed 2021. Blood 01/04/2025 9:16 AM PURIFICATION DIRECTOR 01/04/2025 1:22 PM PURIFICATION DIRECTOR us Kirsten Cabrera ARMATURE WINDER LAB BLOOD ORDERABLES Final Re sult [facility] [address] [place] Department [place] [address] * Differential, auto (01/04/2025 9:16 AM PURIFICATION DIRECTOR) Neutrophil abs 2.6 1.5 - 6.5 K/cumm Imm gran abs 0.0 0.0 - 0.1 K/cumm [facility] Lymphocyte abs 1.5 0.8 - 3.3 K/cumm [facility] Monocyte abs 0.4 0.2 - 0.8 K/cumm [facility] Eosinophil abs 0.2 0.0 - 0.5 K/cumm [facility] Basophil abs 0.0 0.0 - 0.1 K/cumm [facility] Neutrophil pct 56.2 % [facility] Comment: Interpretive Data Percent cell count reference ranges are not reported, since discordance with absolute values may lead to misinterpretation of CBC data. Current Interpretive Data was last revised on 2018. Imm gran pct 0.2 % [facility] Comment: Interpretive Data Percent cell count reference ranges are not reported, since discordance with absolute values may lead to misinterpretation of CBC data. Current Interpretive Data was last revised on 2018. Lymphocyte pct 31.5 % [facility] Comment: Interpretive Data Percent cell count reference ranges are not reported, since discordance with absolute values may lead to misinterpretation of CBC data. Current Interpretive Data was last revised on 2018. Monocyte pct 7.4 % [facility] Comment: Interpretive Data Percent cell count reference ranges are not reported, since discordance with absolute values may lead to misinterpretation of CBC data. Current Interpretive Data was last revised on 2018. Eosinophil pct 3.8 % [facility] Comment: Interpretive Data Percent cell count reference ranges are not reported, since discordance with absolute values may lead to misinterpretation of CBC data. Current Interpretive Data was last revised on 2018. Basophil pct 0.9 % [facility] Comment: Interpretive Data Percent cell count reference ranges are not reported, since discordance with absolute values may lead to misinterpretation of CBC data. Current Interpretive Data was last revised on 2018. Blood 01/04/2025 9:16 AM PURIFICATION DIRECTOR 01/04/2025 12:43 PM PURIFICATION DIRECTOR Kirsten Cabrera ARMATURE WINDER LAB BLOOD ORDERABLES Final Re sult [facility] [address] [place] [address] * CBC with auto differential (01/04/2025 9:16 AM PURIFICATION DIRECTOR) WBC 4.7 3.8 - 9.9 K/cumm Hgb 14.1 11.9 - 15.5 g/dL [facility] Hct 43.6 35.6 - 45.5 % [facility] Plt 281 150 - 400 K/cumm [facility] MPV 10.0 9.1 - 12.3 fL [facility] RBC 4.54 3.90 - 5.20 M/cumm [facility] MCV 96.0 81.3 - 96.4 fL [facility] MCH 31.1 27.1 - 33.3 pg [facility] MCHC 32.3 32.3 - 35.7 g/dL [facility] RDW CV 11.9 11.1 - 14.9 % [facility] RDW SD 42.2 35.7 - 48.1 fL [facility] NRBC abs 0.00 0.00 - 0.01 K/cumm [facility] Blood 01/04/2025 9:16 AM PURIFICATION DIRECTOR 01/04/2025 12:43 PM PURIFICATION DIRECTOR Kirsten Cabrera ARMATURE WINDER LAB BLOOD ORDERABLES Final Re sult Performing Organization Address City/[facility]/ZIP Co de Phone Number [facility] [address] Department [place] [address] * TSH (01/04/2025 9:16 AM PURIFICATION DIRECTOR) Pathologist [facility] Thyroid Stimulating Hormone 2.73 0.30 - 4.20 mcIUnit/mL Blood 01/04/2025 9:16 AM PURIFICATION DIRECTOR 01/04/2025 1:22 PM PURIFICATION DIRECTOR Kirsten Cabrera ARMATURE WINDER LAB BLOOD ORDERABLES Final Re sult Performing Organization Address [facility] de Phone Number [facility] [address] Department [place] [address] * Hemoglobin A1c (01/04/2025 9:16 AM PURIFICATION DIRECTOR) [facility] Hgb A1C 5.5 4.0 - 5.6 % Estimated Average Glucose 111 mg/dL [facility] Comment: The ADA recommends reporting an estimated Average Glucose (eAG) with all Hemoglobin A1c results using the equation derived from a study of 507 normal and diabetic adults. Minority populations were underrepresented and children were not included. (Diabetes Care 31:6748-9929, 2008). The eAG is not equivalent to a fasting glucose. Blood 01/04/2025 9:16 AM PURIFICATION DIRECTOR 01/04/2025 12:43 PM PURIFICATION DIRECTOR Kirsten Cabrera ARMATURE WINDER LAB BLOOD ORDERABLES Final Re sult Performing Organization Address [facility] de Phone Number [facility] [address] [place] [address] * (ABNORMAL) Lipid panel (01/04/2025 9:16 AM PURIFICATION DIRECTOR) Pathologist [facility] Cholesterol 233(H) 30 - 199 mg/dL Comment: [...] revised on 2018. Triglycerides 140 <=149 mg/dL [facility] Comment: Interpretive Data Ages < or [...] revised on 2018. HDL 41 >=40 mg/dL [facility] Comment: Interpretive Data Ages < or [...] on 2018. LDL, calculated 166(H) <=129 mg/dL [facility] Comment: Interpretive Data Ages < or [...] 3. Fazal Valdez et al. SHAYAN Cardiol. 2020 March 18;5(5):540-548. doi: 10.1001/jamacardio.2020.0013 Current Interpretive Data was last revised on 2024. Non-HDL Cholesterol 192 mg/dL [facility] Comment: Interpretive Data Ages < or [...] last revised on 2018. Chol/HDL ratio 6 [facility] Blood 01/04/2025 9:16 AM PURIFICATION DIRECTOR 01/04/2025 1:22 PM PURIFICATION DIRECTOR us Kirsten Cabrera ARMATURE WINDER LAB BLOOD ORDERABLES Final Re sult [facility] [address] Department [place] [address] * (ABNORMAL) Comprehensive metabolic panel (01/04/2025 9:16 AM PURIFICATION DIRECTOR) Sodium 144 135 - 145 mmol/L Potassium, pl 4.4 3.3 - 4.9 mmol/L [facility] Chloride 106 97 - 110 mmol/L [facility] CO2 27 22 - 32 mmol/L [facility] Anion gap 11 2 - 15 mmol/L [facility] BUN 12 6 - 25 mg/dL [facility] Creatinine 0.69 0.60 - 1.10 mg/dL [facility] Glucose 109 70 - 199 mg/dL [facility] Comment: Interpretive Data Fasting glucose >/= [...] classification and Diagnosis of Diabetes Diabetes Care 202; 46: S19-S40. Current interpretive data was last revised 2022. Calcium 9.3 8.5 - 10.3 mg/dL [facility] Bilirubin, total 0.5 0.1 - 1.2 mg/dL [facility] Protein, pl 7.1 6.5 - 8.5 g/dL [facility] Albumin 4.3 3.5 - 5.0 g/dL [facility] Alk phos 84 40 - 130 Units/L [facility] ALT 52(H) 7 - 45 Units/L [facility] AST 34 10 - 45 Units/L [facility] Blood 01/04/2025 9:16 AM PURIFICATION DIRECTOR 01/04/2025 1:22 PM PURIFICATION DIRECTOR Narrative [facility] - 01/04/2025 2:12 PM PURIFICATION DIRECTOR Has the patient fasted?->Yes us Kirsten Cabrera ARMATURE WINDER LAB BLOOD ORDERABLES Final Re sult [facility] [address] Department [place] [address] * Stool DNA - Cologuard (06/11/2024 9:40 PM CDT) Pathologist [facility] Stool DNA - Cologuard Negative Negative [facility] (CLIA #:[id number]) Comment: NEGATIVE TEST RESULT. A negative Cologuard [...] (Stephanie Hodges al, N Engl J Med 2014;370(14):3240-2289) The normal value (reference range) for this assay is negative. COLOGUARD RE-SCREENING RECOMMENDATION: Periodic colorectal cancer screening is an important part of preventive healthcare for asymptomatic individuals at average risk for colorectal cancer. Following a negative Cologuard result, the [place] Cancer Society and U.S. Multi-Society Task Force screening guidelines recommend a Cologuard re-screening interval of 3 years. References: [place] Cancer Society Guideline for Colorectal Cancer Screening: https://www.cancer.org/cancer/kcetq-whzmow-emhrwx/goeuqmluk-wrtxlbpfl-tmhytja/ac s-rec ommendations.html.; Bryce FOLEY, Ricardo DALEY, Sandie LaddK, Colorectal Cancer Screening: Recommendations for Physicians and Patients from the U.S. Multi-Society Task Force on Colorectal Cancer Screening , Am J Gastroenterology 2017; 112:7477-2528. TEST DESCRIPTION: Composite algorithmic analysis of stool [...] colorectal cancer [4.0%], advanced adenoma (including sessile serrated polyps greater than or equal to 1cm diameter) [20%] or non- advanced adenoma [31%]; or no colorectal neoplasia [45%]. These estimates are derived from a prospective cross-sectional screening study of 10,000 individuals at average risk for colorectal cancer who were screened with both Cologuard and colonoscopy. (Stephanie Marcos, N Engl J Med 2014;370(14):2334-2106.) Cologuard may produce a false negative or false positive result (no colorectal cancer or precancerous polyp present at colonoscopy follow up). A negative Cologuard test result does not guarantee the absence of CRC or advanced adenoma (pre-cancer). The current Cologuard screening interval is every 3 years. ([place] Cancer Society and U.S. Multi-Society Task Force). Cologuard performance data in a 10,000 patient pivotal study using colonoscopy as the reference method can be accessed at the following location: www.[employer]/results. Additional description of the Cologuard test process, warnings and precautions can be found at www.[employer].com. Stool 06/11/2024 9:40 PM CDT 06/13/2024 10:44 AM CDT Sophia Funez NP LAB BODY FLUIDS AND STOOLS ORD ERABLES Final Result Performing Organization Address [facility] Co de Phone Number [facility] (CLIA #:[id number]) [address] [place] [address] * Hepatitis C antibody Blood (05/12/2024 5:00 PM CDT) Hep C Ab Nonreactive Nonreactive Comment: Interpretive Data Nonreactive: Antibodies to HCV not detected. Does NOT exclude the possibility of recent exposure to HCV. Equivocal: Equivocal for HCV antibodies. Supplemental molecular testing will be automatically performed to determine infection status in accordance with current CDC screening recommendations. Reactive: Positive for HCV antibodies. This may represent current or past HCV infection. Supplemental molecular testing will be automatically performed to determine current infection status in accordance with current CDC screening recommendations. Interpretive data was last revised on 2020. Blood 05/12/2024 5:00 PM CDT 05/12/2024 5:00 PM CDT Sophia Funez NP LAB MICROBIOLOGY - GENERAL ORD ERABLES Edited Result - Final Performing Organization Address City/[facility]/ZIP Co de Phone Number [facility] [address] Department [place] [address] * Screening Mammogram Bilateral W [place]ron (11/13/2021) [id number]|2025-04-01 07:56:00|2025-04-01 07:55:00|XMS_ITS|[facility]|External Medical Summaries|[id number]|" Clinical Summary Created on: April 01, 2025 LamarmilaemileeStephanie : 1970 Sex: Female Author Organization [facility] Address [address] [facility] [place] [address] Care Team Providers Care Water Taxi Driver Name Role Phone Michael Alfonso MD Primary Care Provider [phone] [phone] Source Comments [facility],non-owned Affiliates and Associated Physician Practices is amultiple site organization consisting of ambulatory clinics and hospital sitesin [place], [place], [place] and [place]. This disclosure is being madepursuant to the Care Everywhere program and may not contain all information available regarding this patient. Last updated 18.[facility] Allergies No known active allergies Medications * Be aware that medications may not be up to date on this document. Alwaysverify current medications with the patient. pantoprazole EC (PROTONIX) 40 MG tablet Take 40 mg by mouth once daily Active Active Problems Problem Noted Date Diagnosed Date Mixed hyperlipidemia 09/10/2017 Overview (09/24/2017): 09/02 Cholesterol 269 HDL 47 LDL 181 triglyceride 204 Precordial pain 09/09/2017 Overview (09/19/2017): 03/04 stress echo 10:31--101% maximal heart rate, no ischemia, normal LVEF 09/03 EKG: SR at 84, borderline delayed R-wave progress, leftward axis 09/03 echo: EF 60%, normal chamber sizes, normal valve function, RVSP 24 10/04 CTA: Normal aorta, and no PE Family History Relation Name Status Comments Father Alive no heart diseas e Mother Alive no heart diseas e Sister Alive no heart diseas e Social History Tobacco Use Types Packs/Day Years Used Date Smoking Tobacco: Former Cigarettes 1 10 0 11/18/2005 - 11/18/2015 Smokeless Tobacco: Never Alcohol Use Standard Drinks/Week Comments Yes 0 (1 standard drink = 0.6 oz pur e alcohol) 3-5/week Comments Unknown Sex and Gender Information Value Date Recorded Sex Assigned at Not on file Legal Sex Female 6:20 AM PURIFICATION DIRECTOR Gender Identity Not on file Sexual Orientation Not on file Occupation Industry Job Start Date Job End Date [employer] Not on file Not on 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 file Not o n file Not on file Last Filed Vital Signs Vital Sign Reading Time Taken Comments Blood Pressure 132/92 09/24/2017 2:32 PM PURIFICATION DIRECTOR Pulse 78 09/24/2017 2:32 PM PURIFICATION DIRECTOR Temperature - - Respiratory Rate 14 09/24/2017 2:32 PM PURIFICATION DIRECTOR Oxygen Saturation 97% 09/24/2017 2:32 PM PURIFICATION DIRECTOR Inhaled Oxygen Concentration - - Weight 83 kg (183 lb) 09/24/2017 2:32 PM PURIFICATION DIRECTOR Height 165.1 cm (5' 5 ) 09/24/2017 2:32 PM PURIFICATION DIRECTOR Body Mass Index 30.45 09/24/2017 2:32 PM PURIFICATION DIRECTOR Plan of Treatment Health Maintenance Due Date Last Done Comments COLOGUARD (AGES 45-75) - COL ON CA SCREENING 1970 COLON MONITORING 1970 COLONOSCOPY - COLON CA SCREENING 1970 CT COLONOGRAPHY - COLON CA SCREENING 1970 Colorectal Cancer Screening 1970 FIT - COLON CA SCREENING 1970 FLEX SIG - COLON CA SCREENING 1970 LIPID TESTING 1970 MAMMOGRAM 1970 HIV SCREENING 1985 HEPATITIS C SCREENING 01/17/1988 DTAP/TDAP/TD VACCINES (1 - Tdap) 1989 HEPATITIS B VACCINE (1 of 3 - 19+ 3-dose series) 1989 SCREENING FOR DIABETES 09/10/2017 PNEUMOCOCCAL VACCINE 50+ (1 of 1 - PCV) 01/22/2020 ZOSTER VACCINE (1 of 2) 01/22/2020 COVID-19 VACCINE (1 - 2023-2 5 season) 2024 DEPRESSION SCREENING 11/18/2024 INFLUENZA VACCINE (Season Ended) 2025 HIB VACCINE Aged Out No longer eligi ble based on patient's age to complete this topic HPV VACCINE Aged Out No longer eligi ble based on patient's age to complete this topic MENINGOCOCCAL (Group B) VACC INE SHARED DECISION-MAKING Aged Out No longer eligibl e based on patient's age to complete this topic MENINGOCOCCAL GROUPS A/C/Y/W VACCINE Aged Out No longer eligible b ased on patient's age to complete this topic Insurance Care Teams Water Taxi Driver Relationship Specialty Start Date End Date Michael Alfonso MD [address] [place] [address] PCP - General Family Medicine 09/05/17 "
== END 2025-04-01 07:52 | disposition home or self-care (01) ==
LOC: ANHIMG 07:54
DX: Z12.31 Encounter for screening mammogram for malignant neoplasm of breast (principal)
CPT/HCPCS: 77063; 77067